=== PATIENT | male | born 1945 | race Caucasian/White ===

== ENCOUNTER 2024-01-22 10:46 | Observation (INO) | payer MEDICARE, BC ==
[2024-01-22] MEDS ORDERED: Sodium Chloride 0.9% 10 ML Syringe FLUSH PRN (10:55)
[2024-01-22 11:06] LABS: BASOPHILS ABSOLUTE AUTO 0.01 10^3/uL (0.00-0.10); BASOPHILS PERCENT AUTO 0.2 % (0.0-1.0); HEMATOCRIT 40.2 % (40.0-52.0); HEMOGLOBIN 14.1 g/dL (13.0-17.0); IMMATURE GRAN ABSOLUTE AUTO 0.01 10^3/uL (0.00-0.50); IMMATURE GRAN PERCENT AUTO 0.2 % (0.0-5.0); LYMPHOCYTES ABSOLUTE AUTO 0.33 10^3/uL (1.00-4.00); LYMPHOCYTES PERCENT AUTO 5.7 % (20.0-40.0); MEAN CORPUSCULAR HEMOGLOBIN 29.2 pg (27.0-31.0); MEAN CORPUSCULAR HGB CONC 35.1 g/dL (32.0-36.0); MEAN CORPUSCULAR VOLUME 83.2 fL (82.0-92.0); MONOCYTES ABSOLUTE AUTO 0.56 10^3/uL (0.10-0.80); MONOCYTES PERCENT AUTO 9.6 % (2.0-8.0); NEUTROPHILS ABSOLUTE AUTO 4.92 10^3/uL (2.50-7.00); NEUTROPHILS PERCENT AUTO 84.3 % (50.0-70.0); PLATELET COUNT,PLT 146 10^3/uL (150-400); RED BLOOD CELL COUNT 4.83 10^6/uL (4.50-6.00); RED CELL DISTRIBUTION WIDTH 13.9 % (11.5-14.5); WHITE BLOOD CELL COUNT,WBC 5.83 10^3/uL (5.00-10.00)
[2024-01-22 11:52] LABS: ALBUMIN 2.68 g/dL (3.40-5.00); ANION GAP 13.6 mmol/L (5-15); BILIRUBIN TOTAL 1.9 mg/dL (0.2-1.0); CALCIUM 9.3 mg/dL (8.7-10.3); CREATININE 0.86 mg/dL (0.51-1.17); EST CRCL DRUG DOSING (CG) 67.25 mL/min; POTASSIUM,K 3.6 mmol/L (3.5-5.1); PROTEIN TOTAL,TP 7.2 g/dL (6.4-8.2)
[2024-01-22 11:56] LABS: LACTIC ACID 2.9 mmol/L (0.4-2.0)
[2024-01-22] MEDS: Sodium Chloride 0.9% 50 ML IV SCH (12:51)
[2024-01-22] MEDS: Iopamidol 755 Mg/ML 100 ML Bottle IV ONE (12:51)
[2024-01-22 13:40] LABS: APPEARANCE,URINE CLEAR (CLEAR); BILIRUBIN,URINE SMALL (NEGATIVE); COLOR,URINE DARK YELLOW (YELLOW); GLUCOSE,URINE NEGATIVE (NEGATIVE); KETONES,URINE TRACE mg/dL (NEGATIVE); LEUKOCYTE ESTERASE,URINE NEGATIVE (NEGATIVE); NITRITE,URINE NEGATIVE (NEGATIVE); OCCULT BLOOD,URINE NEGATIVE (NEGATIVE); PROTEIN,URINE 100 mg/dL (NEGATIVE)
[2024-01-22 13:46] LABS: BACTERIA,URINE RARE /HPF (NONE TO FEW); EPITHELIAL CELLS,URINE FEW /LPF; RBC,URINE 0-5 /HPF (0-5); WBC,URINE 0-5 /HPF (0-5)
[2024-01-22] MEDS: Sodium Chloride 0.9% 1,000 ML IV ONE ×2 (14:15→16:12)
[2024-01-22 15:39] LABS: ANION GAP 12.3 mmol/L (5-15); CALCIUM 8.6 mg/dL (8.7-10.3); CARBON DIOXIDE,CO2 27.2 mmol/L (21.0-32.0); CREATININE 0.96 mg/dL (0.51-1.17); EST CRCL DRUG DOSING (CG) 60.25 mL/min; POTASSIUM,K 3.5 mmol/L (3.5-5.1)
[2024-01-22] MEDS: Cefepime 2 GM Vial IVPUSH ONE (17:11)
[2024-01-22] MEDS ORDERED: Ondansetron 4 MG Tab.DIS PO PRN (18:33)
[2024-01-22] MEDS ORDERED: Diclofenac Sodium 1% Gel 100 GM Tube TOP PRN (18:40)
[2024-01-22] MEDS ORDERED: Sennosides/Docusate Sodium 50-8.6 MG Tab PO PRN (18:40)
[2024-01-22] MEDS ORDERED: Glucagon,Human Recombinant 1 MG Vial IM PRN (18:42)
[2024-01-22] MEDS ORDERED: 50% Dextrose in Water 50 ML Syringe IVPUSH PRN (18:42)
[2024-01-22] MEDS: Sodium Chloride 0.9% 1,000 ML IV SCH (19:29)
[2024-01-23] MEDS: Acetaminophen 325 MG Tab PO PRN (04:16)
[2024-01-23 07:24] LABS: HEMATOCRIT 38.6 % (40.0-52.0); HEMOGLOBIN 13.4 g/dL (13.0-17.0); MEAN CORPUSCULAR HEMOGLOBIN 29.5 pg (27.0-31.0); MEAN CORPUSCULAR HGB CONC 34.7 g/dL (32.0-36.0); MEAN CORPUSCULAR VOLUME 84.8 fL (82.0-92.0); MEAN PLATELET VOLUME 10.2 fL (7.4-10.4); PLATELET COUNT,PLT 165 10^3/uL (150-400); RED BLOOD CELL COUNT 4.55 10^6/uL (4.50-6.00); RED CELL DISTRIBUTION WIDTH 14.1 % (11.5-14.5); WHITE BLOOD CELL COUNT,WBC 5.33 10^3/uL (5.00-10.00)
[2024-01-23 07:40] LABS: ALBUMIN 2.46 g/dL (3.40-5.00); ANION GAP 13.9 mmol/L (5-15); BILIRUBIN TOTAL 1.3 mg/dL (0.2-1.0); CALCIUM 8.9 mg/dL (8.7-10.3); CARBON DIOXIDE,CO2 26.6 mmol/L (21.0-32.0); CREATININE 0.8 mg/dL (0.51-1.17); EST CRCL DRUG DOSING (CG) 72.12 mL/min; POTASSIUM,K 3.5 mmol/L (3.5-5.1); PROTEIN TOTAL,TP 6.7 g/dL (6.4-8.2)
[2024-01-23] MEDS: Insulin Lispro 100 Unit/ML 3 ML KwikPen SUBCUT SCH (08:06)
[2024-01-23] MEDS: Losartan 50 MG Tab PO SCH (09:31)
[2024-01-23] MEDS: Cefepime 2 GM in Sodium Chloride 0.9% 50 ML IV SCH (09:31)
[2024-01-23] MEDS: Allopurinol 100 MG Tab PO SCH (09:32)
[2024-01-23] MEDS: Aspirin 81 MG Tab.EC PO SCH (09:32)
[2024-01-23] MEDS: Metoprolol Succinate 25 MG Tab.ER PO SCH (09:32)
[2024-01-23] MEDS: amLODIPine 5 MG Tab PO SCH (09:32)
[2024-01-23] MEDS: atorvaSTATin 10 MG Tab PO SCH (09:32)
[2024-01-23] MEDS: Tamsulosin 0.4 MG Cap.ER PO SCH (09:32)
[2024-01-23 11:24] VITALS: BP 122/71; PULSE 88
[2024-01-23] MEDS: cefTRIAXone 2 GM Vial IVPUSH ONE (12:15)
[2024-01-23] MEDS ORDERED: Enoxaparin 40 MG/0.4 ML Syringe SUBCUT SCH (21:00)
== END 2024-01-23 12:50 | disposition home or self-care (01) ==
LOC: KA.ED 10:46 → KA.MS 17:26
PROVIDERS: ADMIT Internal Medicine; ATTEND Internal Medicine
DX: N10 Acute pyelonephritis (principal); B96.89 Other specified bacterial agents as the cause of diseases classified elsewhere; I10 Essential (primary) hypertension; E13.9 Other specified diabetes mellitus without complications; N40.0 Benign prostatic hyperplasia without lower urinary tract symptoms; E78.00 Pure hypercholesterolemia, unspecified; E03.9 Hypothyroidism, unspecified; E87.1 Hypo-osmolality and hyponatremia; Z79.82 Long term (current) use of aspirin; Z79.84 Long term (current) use of oral hypoglycemic drugs; Z79.899 Other long term (current) drug therapy
CPT/HCPCS: 36415; 71046; 74021; 74177; 80048; 80053; 81001; 82150; 82947; 83605; 83690; 84484; 85025; 85027; 87040; 87086; 93005; 93010; 96361; 96374; 96375; 96376; 99223; 99238; 99284; 99285; A9270; G0378; J0692; J0696; J3490; J7030; Q3014; Q9967